=== PATIENT | female | born 1970 | race Caucasian/White ===

== ENCOUNTER 2016-10-16 03:38 | Emergency (ER) | payer OTHER ==
[~2016-10-16 03:38] MED LIST: AMBIEN5 MG PO; ANTABUSE500 MG PO; ARISTADA IM; BENTYL20 MG PO; CATAPRES0.1 MG PO; COL100UDC PO; DEXILANT60 M1 PO; GLUCOPHAGE1000 MG PO; LAC PO; LEVAQUIN750 MG PO; NORCO1 TA1 PO; NORVASC10 MG PO; REMERON30 MG PO; REVIA50 MG PO; TRA50 PO; ZOF4 PO
[2016-10-16 04:41] LABS: BASOPHIL % 0.6 % (0-2); PLATELET COUNT 227 x10^3mcL (130-400)
[2016-10-16 04:43] LABS: RED CELL DISTRIBUTION WIDTH 19.3 % (11.5-14.5)
[2016-10-16 04:48] LABS: CALCIUM 8.5 mg/dL (8.5-10.1); CARBON DIOXIDE 26.9 mmol/L (21-32); CHLORIDE SERUM 105 mmol/L (98-107); CREATININE SERUM 1.8 mg/dL (0.6-1.0); GFR1 32 mL/min; GLUCOSE SERUM 111 mg/dL (74-106); POTASSIUM SERUM 4.6 mmol/L (3.5-5.1); SODIUM SERUM 142 mmol/L (136-145)
[2016-10-16 04:53] LABS: ALBUMIN 3.6 g/dL (3.4-5.0); ALKALINE PHOSPHATASE 76 U/L (46-116); ALT/SGPT 71 U/L (14-59); AST/SGOT 58 U/L (15-37); BILIRUBIN TOTAL 0.18 mg/dL (0.20-1.00); TOTAL PROTEIN, SERUM 7.7 g/dL (6.4-8.2)
[2016-10-16 05:01] LABS: AMPHETAMINE QUAL UR NONE DETECTED (NEG <=1000)
[2016-10-16 10:11] VITALS: BP 119/91
== END 2016-10-16 11:03 | disposition home or self-care (01) ==
LOC: ED 03:38
PROVIDERS: Emergency Medicine
DX: F25.9 Schizoaffective disorder, unspecified (principal); F10.20 Alcohol dependence, uncomplicated; F43.10 Post-traumatic stress disorder, unspecified; F17.200 Nicotine dependence, unspecified, uncomplicated
CPT/HCPCS: 80307; G0480; J2405; J3490; J7030

== ENCOUNTER 2016-11-04 16:06 | Emergency (ER) | payer OTHER ==
[2016-11-04 18:44] LABS: BASOPHIL % 0.6 % (0-2); PLATELET COUNT 216 x10^3mcL (130-400)
[2016-11-04 18:49] LABS: RED CELL DISTRIBUTION WIDTH 18.5 % (11.5-14.5)
[2016-11-04 18:51] LABS: CALCIUM 8.7 mg/dL (8.5-10.1); CARBON DIOXIDE 27.7 mmol/L (21-32); CREATININE SERUM 1.7 mg/dL (0.6-1.0); POTASSIUM SERUM 4.7 mmol/L (3.5-5.1)
[2016-11-04 18:56] LABS: ALBUMIN 3.3 g/dL (3.4-5.0); BILIRUBIN TOTAL 0.3 mg/dL (0.20-1.00); TOTAL PROTEIN, SERUM 7.6 g/dL (6.4-8.2)
[2016-11-04 21:03] VITALS: BP 134/82
== END 2016-11-04 21:03 | disposition home or self-care (01) ==
LOC: ED 16:06
PROVIDERS: Emergency Medicine
DX: J40 Bronchitis, not specified as acute or chronic (principal); Z79.899 Other long term (current) drug therapy
CPT/HCPCS: 83880; J7613; J7644

== ENCOUNTER 2018-04-27 15:44 | Emergency (ER) | payer OTHER ==
[2018-04-27 15:50] VITALS: Ht 162.6 cm
[2018-04-27 17:59] VITALS: BP 145/87
== END 2018-04-27 18:32 | disposition home or self-care (01) ==
LOC: ED 15:44
DX: I10 Essential (primary) hypertension (principal); E11.9 Type 2 diabetes mellitus without complications; M25.462 Effusion, left knee; R07.89 Other chest pain; Z87.442 Personal history of urinary calculi
CPT/HCPCS: Q0092

== ENCOUNTER → 2018-05-12 | Outpatient (CLI) | payer OTHER | END | disposition home or self-care (01) | LOC: CT 10:13 | PROC: B922ZZZ Computerized Tomography (CT Scan) of Paranasal Sinuses (ICD-10-PCS; principal; 2018-05-12) | DX: J34.89 Other specified disorders of nose and nasal sinuses (principal); R13.10 Dysphagia, unspecified ==

== ENCOUNTER 2018-11-12 23:23 | Inpatient (IN) | payer OTHER ==
[~2018-11-12] VITALS: Ht 162.6 cm; Wt 113.4 kg
[2018-11-13 00:10] LABS: BASOPHIL % 0.3 % (0-2); PLATELET COUNT 202 x10^3mcL (130-400)
[2018-11-13 00:12] LABS: RED CELL DISTRIBUTION WIDTH 15.7 % (11.5-14.5)
[2018-11-13 00:44] LABS: CALCIUM 8.9 mg/dL (8.5-10.1); CARBON DIOXIDE 27.6 mmol/L (21-32); CREATININE SERUM 1.8 mg/dL (0.6-1.0); POTASSIUM SERUM 4.2 mmol/L (3.5-5.1)
[2018-11-13 01:06] LABS: ALBUMIN 3.4 g/dL (3.4-5.0); BILIRUBIN TOTAL 0.4 mg/dL (0.20-1.00); TOTAL PROTEIN, SERUM 7.1 g/dL (6.4-8.2)
[2018-11-13] MEDS ORDERED: ARISTADA441 MG/1.6 (02:03)
[2018-11-13 03:57] VITALS: BP 112/62
[2018-11-13 05:27] VITALS: BP 111/69
[2018-11-13 08:19] LABS: CHOLESTEROL/HDL RATIO 3.7
[2018-11-13 09:04] VITALS: BP 128/83
[2018-11-13 12:59] VITALS: BP 116/82
[2018-11-13 18:35] VITALS: BP 132/87
[2018-11-13 19:24] LABS: microscopic required? NO
[2018-11-13 19:40] LABS: urine erythrocyte NEGATIVE (NEGATIVE)
[2018-11-13 19:48] LABS: AMPHETAMINE QUAL UR NONE DETECTED (See below)
[2018-11-13 20:38] VITALS: BP 145/97
[2018-11-14 05:01] VITALS: BP 111/59
[2018-11-14 07:25] LABS: BASOPHIL % 1.1 % (0-2); PLATELET COUNT 156 x10^3mcL (130-400); RED CELL DISTRIBUTION WIDTH 15.2 % (11.5-14.5)
[2018-11-14 08:07] VITALS: BP 115/71
[2018-11-14 09:05] LABS: BILIRUBIN TOTAL 0.36 mg/dL (0.20-1.00); CALCIUM 8.6 mg/dL (8.5-10.1); CARBON DIOXIDE 24.9 mmol/L (21-32); MAGNESIUM 1.9 mg/dL (1.8-2.4); PHOSPHOROUS 3.7 mg/dL (2.5-4.9); POTASSIUM SERUM 4.5 mmol/L (3.5-5.1); TOTAL PROTEIN, SERUM 6.3 g/dL (6.4-8.2)
[2018-11-14 09:06] LABS: ALBUMIN 3.1 g/dL (3.4-5.0)
[2018-11-14 13:13] VITALS: BP 114/90
[2018-11-14 16:02] VITALS: BP 143/93
[2018-11-14 20:51] VITALS: BP 133/87
[2018-11-15 05:40] VITALS: BP 124/75
[2018-11-15 08:03] VITALS: BP 112/71
[2018-11-15 13:24] VITALS: BP 132/94
[2018-11-15 13:51] VITALS: Ht 162.6 cm; Wt 113.4 kg
[2018-11-15 17:56] VITALS: BP 123/91
[2018-11-15 20:30] VITALS: BP 112/66
[2018-11-16 05:11] VITALS: BP 99/61
[2018-11-16 07:12] LABS: BASOPHIL % 0.8 % (0-2); PLATELET COUNT 159 x10^3mcL (130-400)
[2018-11-16 07:40] LABS: RED CELL DISTRIBUTION WIDTH 15.1 % (11.5-14.5)
[2018-11-16 07:46] LABS: BILIRUBIN TOTAL 0.34 mg/dL (0.20-1.00); CALCIUM 9.3 mg/dL (8.5-10.1); CARBON DIOXIDE 26.8 mmol/L (21-32); CREATININE SERUM 1.9 mg/dL (0.6-1.0); MAGNESIUM 1.9 mg/dL (1.8-2.4); PHOSPHOROUS 3.9 mg/dL (2.5-4.9); POTASSIUM SERUM 4.5 mmol/L (3.5-5.1); TOTAL PROTEIN, SERUM 6.3 g/dL (6.4-8.2)
[2018-11-16 07:47] LABS: ALBUMIN 3.1 g/dL (3.4-5.0)
[2018-11-16 08:12] VITALS: BP 109/73
[2018-11-16 11:48] VITALS: BP 128/83
[2018-11-16] MEDS ORDERED: CLOPIDOGREL75 M1 PO (14:09)
[2018-11-16] MEDS ORDERED: ATORVASTATIN CA40 M1 PO (14:09)
[2018-11-16] MEDS ORDERED: ECO81 PO (14:10)
[2018-11-16] MEDS ORDERED: ISOSORBIDE MONO30 MG PO (14:10)
[2018-11-16] MEDS ORDERED: METOPROLOL SUCC25 M2 PO (14:10)
[2018-11-16] MEDS ORDERED: BACO TOP (14:11)
== END 2018-11-16 16:32 | disposition home or self-care (01) | DRG 281 ==
LOC: ED 23:23 → DU 11-13 01:33
PROVIDERS: Emergency Medicine; ADMIT Internal Medicine
DX: I21.4 Non-ST elevation (NSTEMI) myocardial infarction (principal); I51.81 Takotsubo syndrome; Z68.41 Body mass index [BMI] 40.0-44.9, adult; E11.21 Type 2 diabetes mellitus with diabetic nephropathy; I12.9 Hypertensive chronic kidney disease with stage 1 through stage 4 chronic kidney disease, or unspecified chronic kidney disease; E11.22 Type 2 diabetes mellitus with diabetic chronic kidney disease; N18.3 Chronic kidney disease, stage 3 (moderate); F32.9 Major depressive disorder, single episode, unspecified; F43.10 Post-traumatic stress disorder, unspecified; B18.2 Chronic viral hepatitis C; G47.33 Obstructive sleep apnea (adult) (pediatric); E78.5 Hyperlipidemia, unspecified; E66.01 Morbid (severe) obesity due to excess calories; F17.210 Nicotine dependence, cigarettes, uncomplicated; F15.21 Other stimulant dependence, in remission; Z79.84 Long term (current) use of oral hypoglycemic drugs; Z90.5 Acquired absence of kidney
CPT/HCPCS: 83880; J1650; J1885; J2270; Q0092

== ENCOUNTER 2020-02-02 08:19 | Emergency (ER) | payer OTHER ==
[~2020-02-02 08:19] MED LIST changes: +ARISTADA441 MG/1.6; +ATORVASTATIN CA40 M1 PO; +BACO TOP; +CLOPIDOGREL75 M1 PO; +ECO81 PO; +ISOSORBIDE MONO30 MG PO; +METOPROLOL SUCC25 M2 PO
[2020-02-02 08:32] VITALS: Ht 162.6 cm
[2020-02-02 10:54] VITALS: BP 122/80
== END 2020-02-02 10:54 | disposition home or self-care (01) ==
LOC: ED 08:19
DX: S63.617A Unspecified sprain of left little finger, initial encounter (principal); I10 Essential (primary) hypertension; E11.9 Type 2 diabetes mellitus without complications; X58.XXXA Exposure to other specified factors, initial encounter; Y93.89 Activity, other specified; Y92.89 Other specified places as the place of occurrence of the external cause; Y99.8 Other external cause status
CPT/HCPCS: J1885; Q0092